=== PATIENT | male | born 1995 | race Two or more races ===

== ENCOUNTER 2025-02-18 22:40 | Emergency (ER) | payer SELFPAY ==
[2025-02-18 22:43] VITALS: BP 140/85
[2025-02-18] MEDS: MOTRIN 400 MG PO (22:50)
[2025-02-18 23:15] LABS: COVID-19 Antigen Negative (Negative)
--- NOTE | 2025-02-18 23:37 | ED.GENMED ---
History of Present Illness
General
Chief Complaint: Cough
Source: patient
Time Seen by Provider: 02/18/25 23:29
History of Present Illness
History of Present Illness:
29-year-old male with no significant past medical history presents to the emergency department for evaluation of cold/flulike symptoms ongoing for the last 3 days, son at home has had similar symptoms for 5 days. Patient did not take any
medications prior to arrival. Was unaware that he had any fevers. No recent travel or recent antibiotics. No other concerns presently.
Past History
Past History
ED Past Medical History: None
ED Past Surgical History: None
Social History
Tobacco: Non-smoker
Alcohol: None
Drug: None
Personal:
Living: with family
Review of Systems
Review of Systems
All Other Systems: ROS reviewed and negative except as documented in HPI and ROS
Phy Exam
Physical Exam
Physical Exam:
GENERAL: Alert , in no apparent distress
EYE: conjunctiva clear
Head: Normocephalic atraumatic
NECK: Supple,
ENT: mmm.
LUNGS: no acute respiratory distress
NEUROLOGICAL: Alert and oriented
SKIN: Warm and dry, skin intact.
MUSCULOSKELETAL: well perfused.
PSYCH: Normal and appropriate interaction.
Sepsis
Sepsis Screening
Sepsis Assessment: Sepsis Ruled Out
Sepsis Screen
Sepsis Screen: Sepsis Ruled Out
Date: 02/18/25
Time: 23:49
Course
Orders/Labs/Results
Orders:
Orders
02/18/25 22:47
COVID-19 Antigen Urgent
Source: Nasal Swab
Influenza A+B Rapid Molecular Urgent
MARY Source: Nasal Swab
Specimen Description:
Ibuprofen [Motrin] 400 mg .ROUTE .ST-MED ONE
02/18/25 22:50
Ibuprofen [Motrin] 400 mg PO NOW STA
Vital Signs
Initial and Last Documented VS:
Initial Vital Signs
Temp Pulse Resp BP Pulse Ox
101 F H 112 18 140/85 99
02/18/25 22:43 02/18/25 22:43 02/18/25 22:43 02/18/25 22:43 02/18/25 22:43
Last Documented Vital Signs
Temp Pulse Resp BP Pulse Ox
101 F H 112 18 140/85 99
02/18/25 22:43 02/18/25 22:43 02/18/25 22:43 02/18/25 22:43 02/18/25 23:38
MDM/Problems Addressed
Differential Diagnosis Includes:
Influenza
COVID
Other viral etiology
Pneumonia
MDM/Problems Addressed:
29-year-old male presenting to the ER for evaluation of flulike symptoms ongoing for the last 3 days, son at home sick for the last 5 days with similar. Patient tested positive for flu A while in waiting room. Advised on supportive care. Not a
candidate for Tamiflu given symptomatic for greater than 48 hours. Advised continued [id number] remedies at home. Aware of return precautions, stable for discharge.
*Pulse Oximetry
SaO2: 99
Oxygen Mode of Delivery: Room air
Patient hypoxic: no
*Critical Care Note
Total Time (30-74mins, 75-104mins- exclusive of procedures): Not Applicable
ED Attending Note
-
Portions of this chart may have been created with voice recognition software.� Occasional wrong word or��sound alike� substitutions may have occurred due to the inherent limitations of voice recognition software.
Discharge Plan
Departure
Patient Disposition: Home (Routine Discharge)
Date of Disposition: 02/18/25
Time of Disposition: 23:38
Patient with high blood pressure during this ER visit?: Yes
Discharge Problem:
Influenza A
Instructions: Flu in adults - ED (DC)
Stand Alone Forms: Return to Work
Interventions
Interventions:
*General Assessment Last Done: 02/18/25 23:31
*Neglect/Abuse Screening Last Done: 02/18/25 23:31
*ED COVID-19 Vaccine History Last Done: 02/18/25 23:31
*ED Influenza Vaccine History Last Done: 02/18/25 23:31
[facility] Fall Risk Assessment Tool Last Done: 02/18/25 23:31
*Risk Screen - Suicide (C-SSRS) Last Done: 02/18/25 23:31
ED- Pulmonary Assessment Last Done: 02/18/25 23:31
Discharge Date and Time
Print Language: MICRONESIAN
== END 2025-02-19 00:06 | disposition home or self-care (01) ==
LOC: EMR 22:40
PROVIDERS: EMERGENCY PHYSICIAN Student in an Organized Health Care Education/Training Program
DX: J10.1 Influenza due to other identified influenza virus with other respiratory manifestations (principal)
CPT/HCPCS: 99283; 87502; 87811